=== PATIENT | female | born 1985 | race Caucasian/White ===

== ENCOUNTER 2023-10-25 10:55 | Emergency (ER) | payer OTHER ==
[~2023-10-25] VITALS: Ht 157.5 cm; Wt 55.8 kg
[2023-10-25] MEDS ORDERED: FAMOTIDINE/PF INJ 20 MG/2 ML VIAL IV ONE ×2 (11:22→11:30)
[2023-10-25] MEDS ORDERED: methylPREDNISolone SOD SUCC 125 MG/2ML VIAL ONE (11:22)
[2023-10-25] MEDS ORDERED: methylPREDNISolone SOD SUCC 125 MG/2ML VIAL IV ONE (11:30)
[2023-10-25] MEDS ORDERED: IV NS 0.9% 1,000 ML BAG IV ONE (11:30)
[2023-10-25] MEDS ORDERED: FAMO-131 PO (12:26)
[2023-10-25] MEDS ORDERED: DIPH50CA4 PO (12:26)
[2023-10-25] MEDS ORDERED: PRED50TA PO (12:26)
[2023-10-25 13:17] VITALS: BP 148/96; TEMP 98; O2SAT 100
== END 2023-10-25 13:17 | disposition home or self-care (01) ==
LOC: ER 11:18
DX: R21 Rash and other nonspecific skin eruption (principal); T78.1XXA Other adverse food reactions, not elsewhere classified, initial encounter; Z91.010 Allergy to peanuts; X58.XXXA Exposure to other specified factors, initial encounter
CPT/HCPCS: 99284; 96374; 96361; 96375; J3490; J2930; J7030

== ENCOUNTER 2024-11-17 12:57 | Emergency (ER) | payer OTHER ==
[~2024-11-17] VITALS: Ht 137.2 cm; Wt 46.3 kg
[~2024-11-17 12:57] MED LIST: DIPH50CA4 PO; FAMO-131 PO; PRED50TA PO
[2024-11-17] MEDS ORDERED: diphenhydrAMINE HCL 50 MG/ML VIAL ONE (13:18)
[2024-11-17] MEDS ORDERED: methylPREDNISolone SOD SUCC 125 MG/2ML VIAL ONE (13:19)
[2024-11-17] MEDS ORDERED: FAMOTIDINE/PF INJ 20 MG/2 ML VIAL IV ONE (13:19)
[2024-11-17 13:20] VITALS: TEMP 98.1
[2024-11-17] MEDS: diphenhydrAMINE HCL 50 MG/ML VIAL IV ONE (13:43)
[2024-11-17] MEDS: methylPREDNISolone SOD SUCC 125 MG/2ML VIAL IV ONE (13:44)
[2024-11-17] MEDS: FAMOTIDINE/PF INJ 20 MG/2 ML VIAL IV ONE (13:44)
[2024-11-17] MEDS: IV NS 0.9% 1,000 ML BAG IV ONE (13:44)
[2024-11-17 13:50] LABS: BASOPHILS # (AUTO) 0.1 K/uL (0.0-0.2); BASOPHILS % (AUTO) 0.5 % (0.0-2.0); EOSINOPHILS # (AUTO) 0.5 K/uL (0.0-0.7); EOSINOPHILS % (AUTO) 2.9 % (0.0-6.0); HEMATOCRIT 41 % (33-45); HEMOGLOBIN 13.7 g/dL (11.5-14.8); LYMPHOCYTES # (AUTO) 5.1 K/uL (0.8-4.8); LYMPHOCYTES % (AUTO) 29.8 % (20.0-44.0); MEAN CORPUSCULAR HEMOGLOBIN 30 PG (26.0-33.0); MEAN CORPUSCULAR HGB CONC 34 g/dl (31.0-36.0); MEAN CORPUSCULAR VOLUME 88 fL (82-100); MONOCYTES # (AUTO) 1.5 K/uL (0.1-1.30); MONOCYTES % (AUTO) 8.8 % (2.0-12.0); NEUTROPHILS # (AUTO) 9.9 K/uL (1.8-8.9); PLATELET COUNT (AUTO) 335 K/uL (150-450); RED BLOOD CELL COUNT(AUTO) 4.61 MIL/uL (4.0-5.2); RED CELL DISTRIBUTION WIDTH 13.4 % (11.5-15.0); WHITE BLOOD COUNT (AUTO) 17.1 K/uL (4.3-11.0)
[2024-11-17 13:57] LABS: CALCIUM, SERUM 8.5 mg/dL (8.5-10.1); CREATININE 0.9 mg/dL (0.6-1.3); POTASSIUM 3.1 mmol/L (3.5-5.1)
[2024-11-17] MEDS ORDERED: EPIN0.3P3 IM (14:55)
[2024-11-17] MEDS ORDERED: PRED50TA PO (14:55)
[2024-11-17] MEDS ORDERED: FAMO-131 PO (14:55)
[2024-11-17] MEDS ORDERED: DIPH25CA83 PO (14:55)
[2024-11-17 15:24] VITALS: BP 114/80; O2SAT 97
== END 2024-11-17 15:24 | disposition home or self-care (01) ==
LOC: ER 13:00
DX: T78.1XXA Other adverse food reactions, not elsewhere classified, initial encounter (principal); G40.909 Epilepsy, unspecified, not intractable, without status epilepticus; Z79.52 Long term (current) use of systemic steroids; Z91.010 Allergy to peanuts; X58.XXXA Exposure to other specified factors, initial encounter
CPT/HCPCS: 99291; 96374; 96375; 96361; 93005; 71045; 85025; 80048; 36415; J2919; J1200; J3490